=== PATIENT | female | born 1955 | race Caucasian/White ===

== ENCOUNTER 2018-02-12 10:14 | Emergency (ER) | payer OTHER ==
[~2018-02-12] VITALS: Ht 162.6 cm; Wt 68.0 kg
[2018-02-12 10:25] VITALS: BP 152/80
[2018-02-12] MEDS ORDERED: CYMBALTA60 MG PO (10:45)
[2018-02-12] MEDS ORDERED: NATURAL THYROID PO (10:46)
[2018-02-12] MEDS ORDERED: TRAMADOL HCL50 MG PO (12:48)
== END 2018-02-12 12:55 | disposition home or self-care (01) | DRG 563 ==
LOC: ED 10:14
PROC: 2W38X1Z Immobilization of Right Upper Extremity using Splint (ICD-10-PCS; principal; 2018-02-12)
DX: S42.254A Nondisplaced fracture of greater tuberosity of right humerus, initial encounter for closed fracture (principal); S16.1XXA Strain of muscle, fascia and tendon at neck level, initial encounter; W01.0XXA Fall on same level from slipping, tripping and stumbling without subsequent striking against object, initial encounter; Y93.02 Activity, running; Y92.39 Other specified sports and athletic area as the place of occurrence of the external cause